=== PATIENT | male | born 2000 | race Caucasian/White ===

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

== ENCOUNTER 2024-07-25 14:25 | Emergency (ER) | payer SELFPAY | END 2024-07-25 16:04 | disposition home or self-care (01) | LOC: MW.ED 14:25 | DX: H66.003 Acute suppurative otitis media without spontaneous rupture of ear drum, bilateral (principal); Z90.89 Acquired absence of other organs; Z79.899 Other long term (current) drug therapy | CPT/HCPCS: 87428-QW; 99283 ==